=== PATIENT | female | born 1955 | race Caucasian/White ===

== ENCOUNTER 2018-07-14 00:32 | Emergency (ER) | payer MEDICARE, MEDICAID | END 2018-07-14 00:55 | disposition left against medical advice (07) | LOC: ER 00:34 | DX: T57.0X Toxic effect of arsenic and its compounds (principal); Z53.21 Procedure and treatment not carried out due to patient leaving prior to being seen by health care provider; Y92.9 Unspecified place or not applicable ==

== ENCOUNTER 2018-12-05 15:20 | Inpatient (IN) | payer MEDICARE, MEDICAID ==
[~2018-12-05] VITALS: Ht 172.7 cm; Wt 69.1 kg
[2018-12-05] MEDS ORDERED: SODIUM CHLORIDE 0.9% 1,000 ML IV ONE ×2 (15:35)
[2018-12-05] MEDS ORDERED: ONDANSETRON HCL 4 MG/2 ML VIAL IV ONE (15:45)
[2018-12-05] MEDS ORDERED: MORPHINE SULF INJ 2 MG/ML SYRINGE 1ML IV ONE (15:45)
[2018-12-05 16:22] LABS: Basophils # (auto) 0.1 uL; Basophils % (auto) 0.6 % (0.0-2.0); Eosinophils # (auto) 0.4 uL; Eosinophils % (auto) 3.8 % (0.0-7.0); Hematocrit 42.1 % (36.0-46.0); Lymphocytes # (auto) 1.5 uL; Lymphocytes % (auto) 14.2 % (10.0-50.0); Mean Corpuscular Hemoglobin 27.4 pg (28.0-32.0); Mean Corpuscular Hgb Conc. 33.2 g/dL (32.0-36.0); Mean Corpuscular Volume 82.7 fL (80.0-100.0); Monocytes # (auto) 1.1 uL; Monocytes % (auto) 10.6 % (0.0-12.0); Neutrophils # (auto) 7.2 uL; Neutrophils % (auto) 70.8 % (37.0-80.0); Nucleated Red Blood Cells % 0.1 %; Platelet Count (auto) 375 10^3/uL (140-450); Red Blood Cells 5.09 10^6/uL (4.0-5.20); Red Cell Distribution Width 12.8 % (11.8-14.3); White Blood Cell 10.2 10^3/uL (4.4-10.8)
[2018-12-05 16:46] LABS: Alanine Aminotransferase 8 U/L (13-56); Albumin 3.1 g/dL (3.4-5.0); Alkaline Phosphatase 71 U/L (45-117); Anion Gap 8 (5-15); Aspartate Aminotransferase 8 U/L (15-37); BUN/Creatinine Ratio 20.1; Bilirubin, Total 0.2 mg/dL (0.2-1.0); Blood Urea Nitrogen 34 mg/dL (7-18); Calcium 8.3 mg/dL (8.5-10.1); Carbon Dioxide 28 mmol/L (21-32); Chloride 105 mmol/L (98-107); GFR African American 39 mL/min; GFR Non-African American 32 mL/min; Glucose 152 mg/dL (74-106); Potassium 3.7 mmol/L (3.5-5.1); Sodium 141 mmol/L (136-145); Total Protein 6.3 g/dL (6.4-8.2)
[2018-12-05] MEDS ORDERED: SODIUM CHLORIDE 0.9% 500 ML IV ONE (18:15)
[2018-12-05] MEDS ORDERED: ONDANSETRON HCL 4 MG/2 ML VIAL IV PRN (18:15)
[2018-12-05] MEDS ORDERED: MORPHINE SULF INJ 2 MG/ML SYRINGE 1ML IV PRN ×2 (18:15)
[2018-12-05] MEDS ORDERED: NITROGLYCERIN 0.4 MG SL TAB SL PRN (18:15)
[2018-12-05] MEDS ORDERED: LORazepam 2MG/ML-1ML VIAL IV PRN (18:15)
[2018-12-05] MEDS ORDERED: LEVOFLOXACIN 500MG 100 ML IV ONE (18:45)
--- NOTE | 2018-12-05 20:04 | NUR ---
[facility] admit [facility] admitted to tele/MS. Patient oriented to JOE SAUCEDO RN primary RN, unit, room, bed, and unit policies regarding patient care and visiting hours. Patient weighed by bedscale and encouraged to call if they need something. Patient noted to be alert and orientated x4, but is currently refusing to answer any questions. Will continue to monitor.
[2018-12-05 20:06] VITALS: BP 95/66
--- NOTE | 2018-12-05 20:06 | NUR ---
RN Romel at bedside to help with admission process. Patient noted to be A/Ox4 and answering very little questions and ignoring RN. Patient is answering RN with closed ended statements.
[2018-12-05] MEDS: metroNIDAZOLE 500MG/100ML 100 ML IV SCH (20:30)
--- NOTE | 2018-12-05 20:45 | NUR ---
Patient alert and orientated x4. RN at the bedside explaining the benefits of a NG tube, patient refusing NG tube placement. Patient states she had a bowel movement today. Will notify hospitalist. Will continue to monitor.
[2018-12-05] MEDS: D5W/ SOD CHL 0.9%/KCL 20MEQ 1,000 ML IV SCH (21:15)
[2018-12-05 21:39] VITALS: BP 95/66
[2018-12-05] MEDS ORDERED: FAMOTIDINE (10MG/ML) 2ML VL IV SCH (22:00)
--- NOTE | 2018-12-05 23:00 | NUR ---
Hospitalist Dr. Trejo notified of patient's refusal for NG placement.
--- NOTE | 2018-12-06 01:38 | NUR ---
Patient stated "If I don't have my test done tomorrow I am going home AMA". Tamara IGLESIAS tried to explain to the patient about the test and patient closed her eyes and turned away.
[2018-12-06] MEDS: metroNIDAZOLE 500MG/100ML 100 ML IV SCH (03:58)
[2018-12-06] MEDS: D5W/ SOD CHL 0.9%/KCL 20MEQ 1,000 ML IV SCH (04:15)
[2018-12-06 04:55] VITALS: BP 99/64
--- NOTE | 2018-12-06 05:05 | NUR ---
Patient threatening to leave because she does not agree with her NPO status and wants to eat. Explained to the patient why she is NPO and patient stated "This is bullshit, I want to leave". Will continue to monitor.
--- NOTE | 2018-12-06 06:10 | NUR ---
Patient stated " I am leaving AMA" and she refused to stay here any longer. Patient began yelling calling me a "Bitch and mother fucker". Spoke to the patient explaining to wait until she sees the doctor in the morning and explained why she is currently NPO. Patient insisted on leaving. Patient began yelling at the patient sharing the room, and when asked to please be respectful of the other patients she started yelling again. Notified Dr. Trejo, and the nurse discharge Demetrius of patient's AMA status.
--- NOTE | 2018-12-06 06:13 | NUR ---
IV removal IV DC'd with sterile technique, catheter fully intact. Pressure dressing applied to site. Patient tolerated procedure well.
--- NOTE | 2018-12-06 06:21 | NUR ---
Patient alert and orientated x4. Patient angrily left the unit screaming and calling the primary RN Tamara dye "Laurach". Patient has no contact to inform of AMA status. Informed charge rn Demetrius.
[2018-12-06] MEDS ORDERED: LEVOFLOXACIN 500MG 100 ML IV SCH (10:00)
== END 2018-12-06 06:00 | disposition left against medical advice (07) | DRG 388 ==
LOC: EDBD 15:20 → ER 15:20 → OVERFLOW 15:21 → EAST 20:08
PROVIDERS: ADMIT Nurse Practitioner Acute Care; ATTEND Nurse Practitioner Acute Care
DX: K56.609 Unspecified intestinal obstruction, unspecified as to partial versus complete obstruction (principal); N17.0 Acute kidney failure with tubular necrosis; E44.0 Moderate protein-calorie malnutrition; J44.9 Chronic obstructive pulmonary disease, unspecified; N18.3 Chronic kidney disease, stage 3 (moderate); I12.9 Hypertensive chronic kidney disease with stage 1 through stage 4 chronic kidney disease, or unspecified chronic kidney disease; G62.9 Polyneuropathy, unspecified; M16.10 Unilateral primary osteoarthritis, unspecified hip; Z53.29 Procedure and treatment not carried out because of patient's decision for other reasons; F31.9 Bipolar disorder, unspecified; Z68.23 Body mass index [BMI] 23.0-23.9, adult; Z88.0 Allergy status to penicillin; Z90.710 Acquired absence of both cervix and uterus
CPT/HCPCS: 36415; 71045; 74176; 80053; 84484; 85025; 96361; 96374; 96375; G0378; J1956; J2405; J3490

== ENCOUNTER 2018-12-07 03:58 | Inpatient (IN) | payer MEDICARE, MEDICAID ==
[~2018-12-07] VITALS: Ht 172.7 cm; Wt 68.0 kg
[2018-12-07] MEDS ORDERED: SODIUM CHLORIDE 0.9% 500 ML IV ONE (05:15)
[2018-12-07] MEDS ORDERED: SODIUM CHLORIDE 0.9% 500 ML IVB ONE (06:19)
[2018-12-07 06:53] LABS: Basophils # (auto) 0 uL; Basophils % (auto) 0.7 % (0.0-2.0); Eosinophils # (auto) 0.5 uL; Eosinophils % (auto) 6.9 % (0.0-7.0); Hematocrit 41.5 % (36.0-46.0); Hemoglobin 13.8 g/dL (12.2-16.2); Lymphocytes # (auto) 1.3 uL; Lymphocytes % (auto) 18.4 % (10.0-50.0); Mean Corpuscular Hemoglobin 27.3 pg (28.0-32.0); Mean Corpuscular Hgb Conc. 33.2 g/dL (32.0-36.0); Mean Corpuscular Volume 82.4 fL (80.0-100.0); Monocytes # (auto) 0.7 uL; Monocytes % (auto) 10.3 % (0.0-12.0); Neutrophils # (auto) 4.4 uL; Neutrophils % (auto) 63.7 % (37.0-80.0); Platelet Count (auto) 374 10^3/uL (140-450); Red Blood Cells 5.04 10^6/uL (4.0-5.20); Red Cell Distribution Width 12.7 % (11.8-14.3); White Blood Cell 6.8 10^3/uL (4.4-10.8)
[2018-12-07 07:09] LABS: INR < 0.93 (0.9-1.15); Partial Thromboplastin Time 26.4 sec (23.64-32.05)
[2018-12-07] MEDS ORDERED: MORPHINE SULFATE 4 MG/ML SYR/VIAL IV PRN (07:15)
[2018-12-07 07:20] LABS: Anion Gap 6 (5-15); Blood Urea Nitrogen 18 mg/dL (7-18); Carbon Dioxide 32 mmol/L (21-32); Chloride 104 mmol/L (98-107); Glucose 93 mg/dL (74-106); Potassium 4.9 mmol/L (3.5-5.1); Sodium 142 mmol/L (136-145)
[2018-12-07 07:21] LABS: Alanine Aminotransferase 10 U/L (13-56); Albumin 3.2 g/dL (3.4-5.0); Alkaline Phosphatase 77 U/L (45-117); Amylase 57 U/L (25-115); Aspartate Aminotransferase 7 U/L (15-37); BUN/Creatinine Ratio 23.7; Bilirubin, Total 0.4 mg/dL (0.2-1.0); Calcium 8.9 mg/dL (8.5-10.1); GFR African American 99 mL/min; GFR Non-African American 82 mL/min; Lipase 181 U/L (73-393); Total Protein 6.5 g/dL (6.4-8.2)
[2018-12-07] MEDS ORDERED: BENZOCAINE (DENTAL) 20 % SPRAY 60ML MT ONE ×2 (07:24→08:15)
[2018-12-07] MEDS: ONDANSETRON HCL 4 MG/2 ML VIAL IV PRN ×3 (08:02→23:17)
[2018-12-07 08:30] VITALS: BP 100/82
[2018-12-07 08:34] VITALS: BP 100/82
--- NOTE | 2018-12-07 08:35 | NUR ---
MS admit from ER [facility] admitted to tele/MS after SBAR received. Patient oriented to MAGY FRAIRE RN primary RN, unit, room, bed, and unit policies regarding patient care and visiting hours. Patient has NG tube to right nares. Patient is NPO. Reviewed plan of care with patient, patient verbalized understanding. Bed in low and locked position, call light within reach. Will continue to monitorQ1 hour and PRN.
[2018-12-07] MEDS ORDERED: GASTROGRAFIN 120 ML SOL ONE (08:52)
--- NOTE | 2018-12-07 10:20 | NUR ---
Patient back to room Patient to remain NPO, patient is having a small bowel series. Patient updated on plan of care. Will continue to monitor Q1 hour and PRN.
[2018-12-07 11:12] LABS: BUN/Creatinine Ratio 23.4; Calcium 8.9 mg/dL (8.5-10.1)
--- NOTE | 2018-12-07 11:15 | NUR ---
Incontinent of stool Patient had episode of incontinence of stool in bed. Patient states "I couldn't hold it." Patient cleaned, full linen change completed. Will continue to monitor Q1h hour and PRN.
--- NOTE | 2018-12-07 11:20 | NUR ---
Patient removed NG Tube Patient yelling states "I can't take this any more, I don't care." Will notify MD. Will continue to monitor Q1 hour and PRN.
--- NOTE | 2018-12-07 11:50 | NUR ---
underwriting technician at bedside
--- NOTE | 2018-12-07 12:02 | NUR ---
Patient moved to room 288A Patient moved with all belongings
[2018-12-07] MEDS: D5W/SOD CHLO 0.9% 1,000 ML IV SCH ×2 (12:28→20:35)
--- NOTE | 2018-12-07 12:47 | NUR ---
MRSA swab collected and sent to lab
--- NOTE | 2018-12-07 13:55 | NUR ---
Patient left unit without notifying staff. Patient left unit, this RN received call from abelardo Rivera that patient was in hallway by cafeteria. Patient had episode of incontinence of loose stool on floor. Staff members placed patient in wheel chair and assisted back to room. Patient states she was going to get a soda. Patient states "I am going to if I don't get a seven-up." Educated patient that she is still NPO. Patient cleaned and assisted back to bed. Patient instructed to call for assistance and to not go down to cafeteria. Patient provided with bedside commode. gas line servicer Gin falcon. Sitter at bedside for safety. Will continue to monitor Q1 hour and PRN.
--- NOTE | 2018-12-07 14:30 | NUR ---
Sitter at bedside for safety
--- NOTE | 2018-12-07 14:54 | NUR ---
Dr. Rodgers at bedside Updating patient on plan of care. Instructed this RN that it is ok to give patient clear liquids. If patient develops nausea or vomiting to place patinet back on NPO and place an NG Tube. MD aware that patient previously had an NG tube and removed it herself. Will provide patient with clear liquids. Will continue to monitor Q1 hour and PRN.
[2018-12-07 17:00] VITALS: BP 140/83
[2018-12-07] MEDS: MORPHINE SULF INJ 2 MG/ML SYRINGE 1ML IV PRN ×2 (17:26→23:16)
--- NOTE | 2018-12-07 17:35 | NUR ---
Pain Patient complains of abdominal pain 09/19. Will medicate per MD orders. Will continue to monitor Q1 hour and PRN.
--- NOTE | 2018-12-07 19:00 | NUR ---
Opening Shift Note Assumed care of patient, awake and alert. No S/S of distress/SOB or pain. Instructed on POC and to call for assist PRN, will continue to monitor for changes Q1hr and PRN.
--- NOTE | 2018-12-07 19:24 | NUR ---
Closing Note Report given to shift foreman RN. No signs or symptoms of distress noted at this time.
[2018-12-07 22:00] VITALS: BP 150/101
--- NOTE | 2018-12-08 03:27 | NUR ---
Hospitalist paged: Hospitalist paged d/t patient yelling in agony related to pain d/t her small bowel obstruction. Hospitalist returned page immediately and new orders received and verified.
[2018-12-08] MEDS ORDERED: KETOROLAC TROMETH 30 MG/ML 1ML VIAL IV ONE ×3 (04:00→21:00)
[2018-12-08] MEDS: MORPHINE SULF INJ 2 MG/ML SYRINGE 1ML IV PRN ×2 (04:59→19:28)
[2018-12-08 05:51] LABS: Basophils # (auto) 0 uL; Basophils % (auto) 0.3 % (0.0-2.0); Eosinophils # (auto) 0.3 uL; Eosinophils % (auto) 2.7 % (0.0-7.0); Hematocrit 37.6 % (36.0-46.0); Hemoglobin 12.9 g/dL (12.2-16.2); Lymphocytes # (auto) 1.1 uL; Lymphocytes % (auto) 11.5 % (10.0-50.0); Mean Corpuscular Hgb Conc. 34.3 g/dL (32.0-36.0); Mean Corpuscular Volume 81.7 fL (80.0-100.0); Monocytes % (auto) 10.3 % (0.0-12.0); Neutrophils # (auto) 7.1 uL; Neutrophils % (auto) 75.2 % (37.0-80.0); Nucleated Red Blood Cells % 0.1 %; Platelet Count (auto) 349 10^3/uL (140-450); Red Blood Cells 4.61 10^6/uL (4.0-5.20); Red Cell Distribution Width 12.6 % (11.8-14.3); White Blood Cell 9.4 10^3/uL (4.4-10.8)
[2018-12-08 06:12] LABS: BUN/Creatinine Ratio 28.6; Calcium 8.1 mg/dL (8.5-10.1); Magnesium 2.1 mg/dL (1.6-2.6); Potassium 3.6 mmol/L (3.5-5.1)
[2018-12-08 06:14] VITALS: BP 144/84
--- NOTE | 2018-12-08 07:15 | NUR ---
Opening Note Received report from caustic cresylate shift superintendent RN. Patient is awake, alert and oriented x4. No signs or symptoms of distress noted at this time. Patient states abdominal pain 8/10, and is requesting pain medications. Will medicate per MD orders. atient is on room air, respirations even and unlabored.Sitter at bedside for safety. Bed in low and locked position, call light within reach. Will continue to monitor Q1 hour and PRN.
--- NOTE | 2018-12-08 07:25 | NUR ---
Call from Dr. Rodgers Per Dr. Rodgers, patient is scheduled to have exploratory laparotomy today. Instructed to keep patient NPO. Will implement new orders. Will continue to monitor Q1 hour and PRN.
[2018-12-08 08:39] LABS: INR 1.27 (0.9-1.15)
--- NOTE | 2018-12-08 09:30 | NUR ---
Consents signed and placed in patient chart.
[2018-12-08 09:46] VITALS: BP 156/100
[2018-12-08] MEDS: D5W/SOD CHLO 0.9% 1,000 ML IV SCH ×2 (09:55→23:15)
--- NOTE | 2018-12-08 10:00 | NUR ---
Patient taken down to OR
[2018-12-08] MEDS ORDERED: LEVOFLOXACIN 500MG 100 ML IV ONE (13:35)
[2018-12-08] MEDS ORDERED: MORPHINE SULFATE 4 MG/ML SYR/VIAL IV PRN (13:45)
[2018-12-08] MEDS ORDERED: LABETALOL HCL 5 MG/ML 4ML SYRINGE IV PRN (13:45)
[2018-12-08] MEDS ORDERED: ePHEDrine SULFATE 50 MG/ML AMP IV PRN (13:45)
[2018-12-08] MEDS ORDERED: ONDANSETRON HCL 4 MG/2 ML VIAL IV PRN (13:45)
[2018-12-08] MEDS ORDERED: MIDAZOLAM HCL 1MG/1ML-2 ML VIAL IV PRN (13:45)
[2018-12-08] MEDS ORDERED: HYDROmorphone HCL 2 MG/ML VL IV PRN (13:45)
[2018-12-08] MEDS ORDERED: HYDROmorphone HCL 2 MG/ML VL ONE (13:54)
[2018-12-08] MEDS ORDERED: fentaNYL CITRATE 100 MCG/2 ML VL ONE (13:55)
[2018-12-08] MEDS ORDERED: MIDAZOLAM HCL 1MG/1ML-2 ML VIAL ONE (13:55)
[2018-12-08] MEDS ORDERED: fentaNYL CITRATE 5 ML ONE (14:17)
[2018-12-08] MEDS ORDERED: ETOMIDATE (2MG/ML) 20ML VIAL IV ONE (14:17)
[2018-12-08] MEDS ORDERED: DexAMETHasone SOD PHOS 10MG/1ML VIAL INJ ONE (14:17)
--- NOTE | 2018-12-08 16:26 | NUR ---
Received report from Irish in PACU Awaiting patient to be brought back to room.
--- NOTE | 2018-12-08 16:36 | NUR ---
Patient back from OR Patient is s/p exploratory laparotomy. Patient is awake, alert and oriented. Patient is on room air, respirations even and unlabored. Patient has a Michel catheter, patent and draining. Patient states abdominal pain 8/10, will medicate per MD orders. Patient has abdominal binder. Dressing to abdomen, draining noted and circled. Reviewed plan of care with patient, patient verbalized understanding. Sitter at bedside for safety. Bed in low and locked position, call light within reach. Will continue to monitor Q1 hour and PRN.
[2018-12-08 16:46] VITALS: BP 152/88
[2018-12-08] MEDS: ONDANSETRON HCL 4 MG/2 ML VIAL IV PRN (19:29)
--- NOTE | 2018-12-08 20:00 | NUR ---
Hospitalist paged: Hospitalist paged d/t patient complaining of feeling anxious and unable to relax. Patient asking for something to help calm her down.
--- NOTE | 2018-12-08 20:50 | NUR ---
Hospitalist returned page: Hospitalist returned page and was updated on patient condition and situation. New orders were received and verified.
[2018-12-08] MEDS ORDERED: LORazepam 0.5 MG TAB PO ONE (21:00)
[2018-12-08] MEDS: hydrALAZINE HCL 20 MG/ML VL IV PRN (21:54)
[2018-12-08 22:00] VITALS: BP 163/85
[2018-12-09] MEDS: MORPHINE SULF INJ 2 MG/ML SYRINGE 1ML IV PRN ×3 (01:33→20:29)
[2018-12-09 05:00] VITALS: BP 145/97
[2018-12-09 09:00] VITALS: BP 156/87
[2018-12-09] MEDS ORDERED: GOLYTELY 4L KIT PO ONE (09:00)
--- NOTE | 2018-12-09 10:50 | NUR ---
PAGED DR CRUZ TO CLARIFY GO LYTELY ORDER. WILL AWAIT ADMINISTRATION UNTIL ORDERS CLARIFIED
--- NOTE | 2018-12-09 11:17 | NUR ---
DR CRUZ CALLED BACK STATED PATIENT IS TO START GO LYTELY TODAY AND REMAIN NPO
[2018-12-09 11:22] LABS: Eosinophils # (auto) 0 uL; Eosinophils % (auto) 0.4 % (0.0-7.0); Hemoglobin 12.2 g/dL (12.2-16.2); Lymphocytes # (auto) 1.1 uL; Monocytes # (auto) 1.2 uL; Platelet Count (auto) 363 10^3/uL (140-450)
[2018-12-09 11:24] LABS: Basophils # (auto) 0 uL; Basophils % (auto) 0.2 % (0.0-2.0); Hematocrit 36.5 % (36.0-46.0); Lymphocytes % (auto) 9.4 % (10.0-50.0); Mean Corpuscular Hemoglobin 27.3 pg (28.0-32.0); Mean Corpuscular Hgb Conc. 33.3 g/dL (32.0-36.0); Mean Corpuscular Volume 81.9 fL (80.0-100.0); Monocytes % (auto) 10.4 % (0.0-12.0); Neutrophils # (auto) 8.9 uL; Neutrophils % (auto) 79.6 % (37.0-80.0); Red Blood Cells 4.46 10^6/uL (4.0-5.20); Red Cell Distribution Width 12.6 % (11.8-14.3); White Blood Cell 11.2 10^3/uL (4.4-10.8)
[2018-12-09] MEDS: D5W/SOD CHLO 0.9% 1,000 ML IV SCH (11:41)
--- NOTE | 2018-12-09 11:41 | NUR ---
GO LYTELY STARTED
[2018-12-09 11:52] LABS: Calcium 8.6 mg/dL (8.5-10.1); Potassium 5.2 mmol/L (3.5-5.1)
[2018-12-09 11:55] LABS: BUN/Creatinine Ratio 24.6
[2018-12-09 12:55] VITALS: BP 145/108
--- NOTE | 2018-12-09 13:10 | NUR ---
PATIENT STATES SHE IS SHORT OF BREATH AND HAVING A PANIC ATTACK. STAFF DEVELOPMENT EDUCATOR AT BEDSIDE. SPO2 IS 98% . PATIENT ASSISTED OFF THE COMMODE BACK TO BED IN COMFORTABLE POSITION. CONTACTED DR. SALGUERO. UPDATED M.D. ON PATIENT STATUS. NEW ORDERS RECEIVED FOR ATIVAN 0.5 MG Q 12 HRS PRN.
[2018-12-09] MEDS: LORazepam 2MG/ML-1ML VIAL IV PRN (13:31)
--- NOTE | 2018-12-09 14:37 | NUR ---
NUTRITION ASSESSMENT NOTES Please refer to link notes of nutrition screen form filed under the intervention section of the plan of care for further details. Est. Needs: 1700 kcal to 2050 kcal (25-30 kcal/kgBW), 68 gms to 82 gms pro (1.0-1.2 gms/kgBW). Will continue to monitor pertinent labs and reassess nutrient need prn Thank you. Addendum: 12/09/18 at [address] Amended: Links added.
--- NOTE | 2018-12-09 15:10 | NUR ---
SON [facility]B CALLED. PASSWORD CREATED BY PATIENT AND SON. SON UPDATED ON PATIENT CONDITION AND PLAN OF CARE. ALL QUESTIONS AND CONCERNS ADDRESSED. SON VERBALIZED UNDERSTANDING. SON PHONE : [phone]
[2018-12-09 17:00] VITALS: BP 150/97
--- NOTE | 2018-12-09 19:00 | NUR ---
Report received by MARIALUISA IGLESIAS. POC reviewed.
[2018-12-09] MEDS: ONDANSETRON HCL 4 MG/2 ML VIAL IV PRN (20:30)
[2018-12-09 22:00] VITALS: BP 130/90
--- NOTE | 2018-12-10 | NUR ---
Patient resting laying supine in no distress. call light within reach.
[2018-12-10] MEDS: LORazepam 2MG/ML-1ML VIAL IV PRN ×3 (02:31→17:29)
--- NOTE | 2018-12-10 04:10 | NUR ---
patient resting comfortably. call light within reach.
[2018-12-10 05:00] VITALS: BP 128/76
[2018-12-10] MEDS: D5W/SOD CHLO 0.9% 1,000 ML IV SCH ×2 (05:33→15:15)
--- NOTE | 2018-12-10 07:00 | NUR ---
Report given to MARIALUISA IGLESIAS. POC reviewed.
[2018-12-10 09:00] VITALS: BP 159/110
--- NOTE | 2018-12-10 09:00 | NUR ---
WOUND CARE NOTE: SPOKE WITH DR. CRUZ REGARDING HIS ORDER FOR WOUND VAC PLACEMENT. PER DR. CRUZ, VAC ORDER WAS ERRONEOUSLY PLACED. NO NEED FOR WOUND VAC PLACEMENT AT THIS TIME.
[2018-12-10 10:07] LABS: Basophils # (auto) 0.1 uL; Basophils % (auto) 0.6 % (0.0-2.0); Eosinophils # (auto) 0.4 uL; Eosinophils % (auto) 3.8 % (0.0-7.0); Hematocrit 36.6 % (36.0-46.0); Hemoglobin 12.7 g/dL (12.2-16.2); Lymphocytes # (auto) 0.9 uL; Lymphocytes % (auto) 8.6 % (10.0-50.0); Mean Corpuscular Hemoglobin 28.1 pg (28.0-32.0); Mean Corpuscular Hgb Conc. 34.6 g/dL (32.0-36.0); Mean Corpuscular Volume 81.2 fL (80.0-100.0); Neutrophils # (auto) 7.8 uL; Platelet Count (auto) 357 10^3/uL (140-450); Red Blood Cells 4.51 10^6/uL (4.0-5.20); Red Cell Distribution Width 12.9 % (11.8-14.3); White Blood Cell 10.2 10^3/uL (4.4-10.8)
[2018-12-10 10:21] LABS: BUN/Creatinine Ratio 28.8; Calcium 8.4 mg/dL (8.5-10.1); Potassium 3.7 mmol/L (3.5-5.1)
[2018-12-10] MEDS: hydrALAZINE HCL 20 MG/ML VL IV PRN ×2 (10:48→17:44)
[2018-12-10] MEDS: MORPHINE SULF INJ 2 MG/ML SYRINGE 1ML IV PRN ×2 (10:51→22:37)
--- NOTE | 2018-12-10 11:20 | NUR ---
Regan catheter dc'd Order to discontinue regan catheter. 400ml output. Regan dc'd with clean technique following deflation of balloon. Patient tolerated well with no complaints of pain. Continue care.
[2018-12-10 13:00] VITALS: BP 158/101
--- NOTE | 2018-12-10 16:47 | NUR ---
EVICTION SPOKE WITH PATIENTS FRIEND EVERTON PARDO AT [facility]. PER EVERTON PATIENT IS GOING TO BE EVICTED FROM HER HOME TOMORROW 12/11/18, SHE SPOKE TO EUSEBIO MATHIS . PER FRIEND GABBY HAS A COURT ORDER FOR EVICTION. FRIEND FOUND PLACEMENT FOR HER DOGS TO BE TAKEN CARE OF. ANY QUESTION CALL EVERTON AT THE ABOVE NUMBER.
[2018-12-10 17:00] VITALS: BP 145/88
--- NOTE | 2018-12-10 17:29 | NUR ---
PAGED DR. CRUZ, AWAITING CALL BACK.
--- NOTE | 2018-12-10 18:17 | NUR ---
RECEIVED CALL FROM DR. CRUZ. NEW ORDERS GIVEN/CARRIED OUT. PATIENT CAN HAVE CLEAR LIQUIDS.
[2018-12-10 21:51] VITALS: BP 138/82
[2018-12-11] MEDS: LORazepam 2MG/ML-1ML VIAL IV PRN ×3 (01:55→21:06)
[2018-12-11] MEDS: hydrALAZINE HCL 20 MG/ML VL IV PRN ×2 (01:55→21:13)
--- NOTE | 2018-12-11 02:11 | NUR ---
DRESSING ABD DRESSING CHANGED.
--- NOTE | 2018-12-11 03:20 | NUR ---
PATIENT CARE RESUMED REPORT RECEIVED FROM JAVON IGLESIAS. PT CURRENTLY SLEEPING IN PRONE POSITION, BREATHING EVEN AND UNLABORED, NO DISTRESS NOTED, EASILT AWAKENED VIA VERBAL STIMULI, CURRENTLY ON ROOM AIR, NO C/O SOB, PAIN, DRESSING TO ANTERIOR ABD CDI, CALL LIGHT WITHIN REACH, CONT CARE
[2018-12-11] MEDS: D5W/SOD CHLO 0.9% 1,000 ML IV SCH ×3 (04:35→23:56)
[2018-12-11 04:46] VITALS: BP 156/92
--- NOTE | 2018-12-11 07:51 | NUR ---
PATIENT REQUESTING TO LEAVE AMA PATIENT [id number], STATES " IM LEAVING, MY GIRLFRIEND WILL COME GET GET, I HAVE RO BE OUT OF MY HOUSE BY THE 6TH", ENCOURAGED PATIENT TO STAY FOR FURTHER MEDICAL TREATMENT ORDERED BY MD, PT STATES " NOPE IM LEAVING", ASSESSED ANTERIOR ABD INCISION, NOTED 24 WELL APPROXIMATED OLIVIER, NO REDNESS, DRAINAGE NOTED, NO PAIN REPORTED BY PATIENT AT THIS TIME, PAGED NET SOLUTIONS ARCHITECT MD LESLIE NIX (RETURN TO FACTORY CLERK), AND MESSAGED DR CRUZ OF PATIENT REQUEST, CONT CARE
[2018-12-11 09:00] VITALS: BP 149/80
--- NOTE | 2018-12-11 10:19 | NUR ---
PAGED PT NOTED TO BE OUT OF ROOM, FRIEND HAD BROUGHT CIGARETTES, TOOK AMA FORM FOR SMOKING TO HAVE IT SIGNED BY PATIENT AND NOTED PATIENT OUT OF THE ROOM, PAGED LESLIE NIX (WEAVING INSPECTOR), TO NOTIFY OF SITUATION, LESLIE CALLED BACK AND STATES PATIENT IS NOW ASSIGNED TO DR SALGUERO, WILL NOTIFY , CONT CARE
--- NOTE | 2018-12-11 12:29 | NUR ---
Nutrition Follow-up Notes Wt.: 68.0 kg Pt was sleeping with no family by bedside. per records pt with SBO and s/p exp lap on 12/08. pt is now advanced to clear liq diet with adequate PO of 75% x 3 per RN doc Est. Needs: 1700 kcal to 2050 kcal (25-30 kcal/kgBW), 68 gms to 82 gms pro (1.0-1.2 gms/kgBW). Will continue to monitor pertinent labs and reassess nutrient need prn Labs: CA 8.41 L, ALB 3.2 L. Skin: Kiran scale 20 low risk incision at site of sx per RN doc GI: Pt had 3 BM yesterday per bakery sales clerk. PES: Increased nutrient needs r/t Chronic/current medical status aeb Intractable abdominal pain,Small bowel obstruction, s/p surgery, mild hypoalbuminemia,NPO Altered nutrition related lab values r/t current/chronic medical condition aeb hyperchloremia, hypocalcemia, mild hypoalbuminemia, Will continue to monitor PO intake, skin status, pertinent labs and weight trend. F/u in 2 to 3 days. Rec.: 1.) Advance gradually to oral diet when medically appropriate. 2.) If Albumin continues trending down, consider Prostat 1 pkt BID. 3.) Refer to RD for further nutrition educ. and weight monitoring upon discharge. 5.) Continue current plan of care.
--- NOTE | 2018-12-11 13:10 | NUR ---
PIV ASSESSMENT Following up regarding order for midline placement. Pt currently has a 24g PIV to left hand. There is some resistance noted when flushing with NS. However, the IV is patent and in tact. No redness, warmth, or swelling noted to insertion site. Pt denies any pain. Pt refusing to have new PIV inserted. PIV left in place. Rodolfo IGLESIAS notified. Addendum: 12/11/18 at 1317 by LEANA AQUINO RN The name Rodolfo was entered by mistake. Ammy IGLESIAS notified.
--- NOTE | 2018-12-11 16:32 | NUR ---
PT PATIENT REFUSED PHYSICAL THERAPY TODAY. KELSIE CARBONE WAS NOTIFIED. Addendum: 12/11/18 at 1633 by WILMAR ANDRE PTT Amended: Links added.
[2018-12-11] MEDS: MORPHINE SULF INJ 2 MG/ML SYRINGE 1ML IV PRN ×2 (17:38→23:23)
[2018-12-11 18:00] VITALS: BP 147/85
--- NOTE | 2018-12-11 19:30 | NUR ---
Patient received resting in bed, alert and responsive, calm and quiet, sitter at bedside. Abdominal dressing intact, no drainage noted. Patient claims she has been having bowel movements and passing gas. On clear liquid diet tolerating well. Call dee with in reach, bed in low position.
[2018-12-11 21:42] VITALS: BP 160/104
[2018-12-11 22:56] VITALS: BP 137/86
--- NOTE | 2018-12-12 01:14 | NUR ---
Received report from RN, assumed care of patient. Patient alert and orientated. Refusing assessment at this time, stating she is fine and wants to sleep. Patient denies pain at this time. No s/s of SOB or distress noted. Will continue to monitor q 1hr and PRN.
--- NOTE | 2018-12-12 03:27 | NUR ---
Patient being verbally aggressive to staff Nurse's aid was in patient's room to help assist her to the restroom and maintain safety, patient told nurse's aid to "get the fuck out of the room."
[2018-12-12 05:20] VITALS: BP 130/82
[2018-12-12] MEDS: LORazepam 2MG/ML-1ML VIAL IV PRN (05:58)
--- NOTE | 2018-12-12 06:14 | NUR ---
Refusing Morning Labs Patient refused AM lab draw. Patient educated on need of having her labs drawn. Patient stated she "did not care" and we are not "taking anymore blood from her."
[2018-12-12] MEDS: MORPHINE SULF INJ 2 MG/ML SYRINGE 1ML IV PRN (07:08)
--- NOTE | 2018-12-12 08:00 | NUR ---
Opening Shift Note Assumed care of patient, awake and alert. No S/S of distress/SOB or pain. With medial abdominal incision with frannie intact, no drainage noted secondary to S/P Laparotomy with Dr. Rodgers. Instructed on POC and to call for assist PRN, will continue to monitor for changes Q1hr and PRN.
--- NOTE | 2018-12-12 08:15 | NUR ---
Patient been verbally abusive to the staff. Addendum: 12/12/18 at 0905 by Tyler Warren RN Patient been verbally aggressive to the staff.
--- NOTE | 2018-12-12 08:20 | NUR ---
Patient wanted to go AMA stated "I want to go home, I'm leaving today." Explained to her the risks of leaving AMA that may lead to but not limited to worsening of condition and possibly . Patient replied, "I had my surgery done last Friday, I don't care. I'm going home." Sushma IGLESIAS charge made morgan. Will inform hospitalist.
--- NOTE | 2018-12-12 08:22 | NUR ---
Called patient's friend Darcie Silva three times #[phone] regarding patient's AMA but unable to get a hold of her.
--- NOTE | 2018-12-12 08:30 | NUR ---
Patient signed AMA form.
[2018-12-12 09:00] VITALS: BP 148/82
--- NOTE | 2018-12-12 09:15 | NUR ---
Patient been verbally aggressive again, security was called in and was escorted out of the room. Addendum: 12/12/18 at 1103 by Tyler Warren RN Dr. Crane assigned hospitalist made aware of patient leaving AMA.
== END 2018-12-12 09:15 | disposition left against medical advice (07) | DRG 335 ==
LOC: ER 03:58 → EDBD 03:58 → OVERFLOW 03:59 → WEST WING 08:34 → EAST 12-11 23:33 → WEST WING 12-11 23:42 → EAST 12-12 00:59
PROVIDERS: ADMIT Nurse Practitioner; ATTEND Internal Medicine
PROC: 0DTJ0ZZ Resection of Appendix, Open Approach (ICD-10-PCS; 2018-12-08)
PROC: 0JNC0ZZ Release Pelvic Region Subcutaneous Tissue and Fascia, Open Approach (ICD-10-PCS; 2018-12-08)
PROC: 0DN80ZZ Release Small Intestine, Open Approach (ICD-10-PCS; principal; 2018-12-08 13:45)
DX: K56.600 Partial intestinal obstruction, unspecified as to cause (principal); N17.0 Acute kidney failure with tubular necrosis; R18.8 Other ascites; J98.11 Atelectasis; E27.8 Other specified disorders of adrenal gland; N28.1 Cyst of kidney, acquired; N18.9 Chronic kidney disease, unspecified; I12.9 Hypertensive chronic kidney disease with stage 1 through stage 4 chronic kidney disease, or unspecified chronic kidney disease; K57.30 Diverticulosis of large intestine without perforation or abscess without bleeding; F41.9 Anxiety disorder, unspecified; G62.9 Polyneuropathy, unspecified; Z53.21 Procedure and treatment not carried out due to patient leaving prior to being seen by health care provider; Z88.0 Allergy status to penicillin; Z91.040 Latex allergy status; Z90.710 Acquired absence of both cervix and uterus; Z90.89 Acquired absence of other organs; Z79.899 Other long term (current) drug therapy
CPT/HCPCS: 36415; 74176; 74250; 80048; 80053; 82150; 83605; 83690; 83735; 83880; 85025; 85610; 85730; 86850; 86900; 86901; 87081; 94761; 96361; 96365; 96375; 97116; 97163; 97530; G0378; J1100; J1885; J1956; J2250; J2405; J7042